=== PATIENT | female | born 1965 | race Caucasian/White ===

== ENCOUNTER 2017-06-20 06:11 | Day surgery (SDC) | payer BC, OTHER ==
[2017-06-19 15:00] VITALS: BMI 36.0
[2017-06-20] MEDS ORDERED: LIDOCAINE HCL 1%, 10 MG/ML (20ML VIAL) ONE (07:22)
[2017-06-20] MEDS ORDERED: BUPIVACAINE HCL/PF 0.5% (5MG/ML) 10 ML VIAL ONE (07:22)
--- NOTE | 2017-06-20 08:08 | HP ---
Satellite [facility] - Chief Complaint Chief Complaint: RIGHT WRIST PAIN - Past Medical History Allergies/Adverse Reactions: Allergies Allergy/AdvReac Type Severity Reaction Status Date / Time Latex, Natural Rubber Allergy Mild Verified 06/20/17 06:43 ...LMP Comment: POSTMENOPAUSAL =SINCE 2001 - Current Medications Current Medications: Home Medications Medication Instructions Recorded Amlodipine Bes/Olmesartan Med 0.5 tab PO DAILY 06/19/17 [Gregorio 10-40 mg Tablet] Cholecalciferol (Vitamin D3) 1 tab PO DAILY 06/19/17 [Vitamin D3 -] Fluticasone/Salmeterol [Advair 1 inh IH DAILY 06/19/17 250-50 Diskus] Pregabalin [Lyrica -] 150 ng PO BID 06/19/17 Sertraline HCl [Zoloft] 100 mg PO DAILY 06/19/17 Vitamin B Complex 1 cap PO HS 06/19/17 Omeprazole 40 mg PO DAILY 06/20/17 Satellite Physical Exam - Physical Examination Vital Signs: Vital Signs Period Temp Pulse Resp BP Sys/Wagner Pulse Ox Last 24 Hr 97.7 F-97.7 F 81-81 20-20 128-128/66-66 95 Extremities: Other (+ PHALENS) Satellite Impression/Plan - Impression/Plan Impression: R CTS Operative Procedure: R CTR Date to be Performed: 06/20/17
[2017-06-20] MEDS ORDERED: MIDAZOLAM HCL 2 MG/2 ML SINGLE DOSE VIAL ONE ×2 (08:17)
[2017-06-20] MEDS ORDERED: LIDOCAINE HCL/PF 2% SDV 5ML VIAL ONE (08:24)
[2017-06-20] MEDS ORDERED: SUCCINYLCHOLINE CHLORIDE 200 MG/10 ML VIAL ONE (08:24)
[2017-06-20] MEDS ORDERED: ceFAZolin SODIUM 1 GM VIAL ONE (08:25)
[2017-06-20] MEDS ORDERED: ceFAZolin SODIUM 1 GM VIAL IVPB ONE (08:28)
[2017-06-20] MEDS ORDERED: LIDOCAINE HCL 1%, 10 MG/ML (20ML VIAL) INF ONE (08:30)
[2017-06-20] MEDS ORDERED: BUPIVACAINE HCL/PF 0.5% (5MG/ML) 10 ML VIAL IJ ONE (08:30)
--- NOTE | 2017-06-20 08:59 | OP ---
Operative Note - Note: Operative Date: 06/20/17 Pre-Operative Diagnosis: right CTS Operation: right CTR, tenosynovectomy Post-Operative Diagnosis: Same as Pre-op Surgeon: Clarence Carlin Electron Beam Welder Setter: Ricky Vasquez Anesthesiologist/INSTRUMENT ADJUSTER: Allison Robles MD Anesthesia: Local, MAC Specimens Removed: tenosynovium Estimated Blood Loss (mls): 0 Drains, Volume Out (mls): 0 Blood Volume Replaced (mls): 0 Fluid Volume Replaced (mls): 500 Operative Report Dictated: Yes
[2017-06-20] MEDS ORDERED: ONDANSETRON 4 MG/2 ML VIAL IVPUSH PRN (09:03)
[2017-06-20] MEDS ORDERED: PROMETHAZINE HCL 25 MG/1 ML VIAL IVPUSH PRN (09:03)
[2017-06-20] MEDS ORDERED: oxyCODONE HCL 5 MG TABLET PO PRN (09:03)
[2017-06-20] MEDS ORDERED: LACTATED RINGERS SOLUTION 1,000 ML IV SCH (09:15)
[2017-06-20 09:17] VITALS: TEMP 97.9
[2017-06-20 12:18] VITALS: BP 115/57; PULSE 79
--- NOTE | 2017-06-21 10:24 | SPEC ---
DATE OF OPERATION: 06/20/2017 PREOPERATIVE DIAGNOSIS: Right carpal tunnel syndrome. POSTOPERATIVE DIAGNOSIS: Right carpal tunnel syndrome. PROCEDURE: Right carpal tunnel release and tenosynovectomy. SURGEON: Len Carlin MD WRAPPER OFF: Ricky Vasquez MD ANESTHESIOLOGIST: Allison Robles MD ANESTHESIA: MAC, local injection of 10 mL 0.50% Marcaine and 1% lidocaine mix. DRAINS: None. COMPLICATIONS: None. BLOOD LOSS: None. BLOOD GIVEN: None. FLUID REPLACEMENT: 500 mL INDICATION FOR PROCEDURE: This patient is a 52-year-old female with a preoperative diagnosis of a recurrent right carpal tunnel syndrome. After understanding the potential risks, complications, alternatives, and benefits of surgery versus nonsurgical treatment, the patient elected to undergo this procedure. DESCRIPTION OF PROCEDURE: The patient was brought to the operating room, peripheral IV placed and intravenous sedation was given. One gram of intravenous Ancef was given. MAC anesthesia was induced. A tourniquet was applied to the right upper arm and the right upper extremity was prepped and draped in sterile fashion. The entire case was done under 3.8 loupe magnification. A marking pen was utilized to arron out a longitudinal incision in an already existing skin crease. Twenty mL of 0.5% Marcaine mixed with 1% Lidocaine was injected in and around the surgical incision. The right upper extremity was elevated, exsanguinated with an Esmarch bandage and the tourniquet inflated to 250 mmHg. A No. 15 scalpel blade was utilized to cut down through the skin. Subcutaneous hemostasis was achieved with the bipolar cautery. Dissection was done through the superficial palmar fascia. Self-retaining retractors were placed into the wound. Under direct visualization, the transverse carpal ligament was transected with a No. 15 scalpel blade, exposing the median nerve and the contents of the carpal tunnel. The distal and proximal extents of the release were completed with a Littler scissor and checked with irrigation and my small finger. They were seen to be complete. Limited dissection was done on the radial side of the median nerve and more extensive dissection was done on the ulnar side of the median nerve. The patients nerve was seen to be quite compressed by epineurium and therefore a limited epineurotomy was performed. A Ragnell retractor was used to gently retract the median nerve in a radial direction. The patient had a lot of tenosynovitis and therefore a tenosynovectomy was performed off all 9 flexor tendons. This was passed off the field as tenosynovium right wrist. The floor of the carpal tunnel was checked. There were no abnormal masses or ganglion cysts. The area was copiously irrigated and washed out and closure begun. Undyed 4-0 Vicryl was used to close the deep dermal layer. Final skin reapproximation was done with horizontal mattress 4-0 nylon sutures. The area was then washed and dried, covered with Xeroform, 4x4s, fluffs between the fingers, Webril and a 4-inch plaster roll was utilized to make a volar splint, which was then wrapped with Krystle and Coban. The tourniquet was taken down after a total tourniquet time of 19 minutes. There were no complications during the case. The patient tolerated the procedure well and was brought to the ambulatory recovery room in stable condition. Ricky Vasquez MD dictating for MD LEN Mclaughlin M.D. [id number]
--- NOTE | 2017-06-21 16:54 | PATH ---
Surgical Pathology Report Patient Name: OZZY MARQUEZ [facility]. Rec. #: [id number] /Age/Gender: 1965 (Age: 52) / F Account: [id number] Location: [facility] SURGICAL Taken: 06/20/2017 Received: 06/20/2017 Reported: 06/21/2017 Physicians: Ricky Vasquez M.D. Specimen(s) Received RIGHT WRIST TENOSYNOVIUM Clinical History Carpal tunnel Final Diagnosis WRIST, TENOSYNOVIUM, RIGHT, EXCISION: BENIGN FIBROCONNECTIVE TISSUE AND SCANT ADIPOSE TISSUE. Electronically Signed Lakesha Soria M.D. Gross Description Received in formalin labeled "right wrist tenosynovium," is a 1.4 x 0.9 x 0.3 cm aggregate of multiple dewey-yellow, irregular portions of soft tissue, consistent with tenosynovium. The specimen is submitted in toto in one cassette. 06/20/201706/20/2017
== END 2017-06-20 12:18 | disposition home or self-care (01) ==
LOC: JASU-SURG 06:11
PROVIDERS: ATTEND Orthopaedic Surgery
PROC: 0LB50ZZ Excision of Right Lower Arm and Wrist Tendon, Open Approach (ICD-10-PCS; 2017-06-20)
PROC: 01N50ZZ Release Median Nerve, Open Approach (ICD-10-PCS; principal; 2017-06-20 08:00)
DX: G56.01 Carpal tunnel syndrome, right upper limb (principal); M65.831 Other synovitis and tenosynovitis, right forearm
CPT/HCPCS: 88304-TC; 94760

== ENCOUNTER 2017-08-15 08:50 | Day surgery (SDC) | payer BC, OTHER ==
[2017-08-14 12:06] VITALS: BMI 36.0
--- NOTE | 2017-08-15 08:10 | HP ---
Satellite H - Chief Complaint Chief Complaint: left hand pain, numbness, weakness History of Present Illness: left CTS History Source: Patient Limitations to Obtaining History: No Limitations - Past Medical History Allergies/Adverse Reactions: Allergies Allergy/AdvReac Type Severity Reaction Status Date / Time Latex, Natural Rubber Allergy Mild Verified 06/20/17 06:43 ...LMP Comment: MENOPAUSE - Current Medications Current Medications: Home Medications Medication Instructions Recorded Amlodipine Bes/Olmesartan Med 0.5 tab PO DAILY 06/19/17 [Gregorio 10-40 mg Tablet] Cholecalciferol (Vitamin D3) 1 tab PO DAILY 06/19/17 [Vitamin D3 -] Fluticasone/Salmeterol [Advair 1 inh IH DAILY 06/19/17 250-50 Diskus] Pregabalin [Lyrica -] 150 ng PO BID 06/19/17 Sertraline HCl [Zoloft] 100 mg PO DAILY 06/19/17 Vitamin B Complex 1 cap PO HS 06/19/17 Omeprazole 40 mg PO DAILY 06/20/17 Cetirizine HCl [Zyrtec -] 10 mg PO DAILY 08/14/17 Diphenhydramine [Benadryl -] 50 mg PO HS 08/14/17 Satellite Physical Exam - Physical Examination General Appearance: Well Nourished ENT: Clear Lung: Clear to auscultation Heart: Regular rate & rhythm Breasts: Soft Abdomen: Soft Extremities: No edema Satellite Impression/Plan - Impression/Plan Impression: left CTS Operative Procedure: left CTR Date to be Performed: 08/15/17
[2017-08-15 09:27] LABS: HCG,QUALITATIVE URINE NEGATIVE
[2017-08-15 09:32] LABS: URINE APPEARANCE CLEAR; URINE BILIRUBIN NEGATIVE (NEGATIVE); URINE BLOOD NEGATIVE (NEGATIVE); URINE COLOR YELLOW; URINE GLUCOSE (UA) NEGATIVE (NEGATIVE); URINE KETONE NEGATIVE (NEGATIVE); URINE NITRITE NEGATIVE (NEGATIVE); URINE PROTEIN NEGATIVE (NEGATIVE); URINE UROBILINOGEN NEGATIVE mg/dL (0.2-1.0)
[2017-08-15 09:38] LABS: URINE LEUK ESTERASE 1+ (NEGATIVE)
[2017-08-15 09:39] LABS: EPI CELLS RARE /HPF (FEW); URINE BACTERIA RARE /hpf (NONE SEEN); URINE MUCUS RARE
[2017-08-15] MEDS ORDERED: LIDOCAINE HCL 1%, 10 MG/ML (20ML VIAL) ONE (11:39)
[2017-08-15] MEDS ORDERED: BUPIVACAINE HCL/PF 0.5% (5MG/ML) 10 ML VIAL ONE (11:39)
[2017-08-15] MEDS ORDERED: PROPOFOL 20 ML ONE (11:42)
[2017-08-15] MEDS ORDERED: MIDAZOLAM HCL 2 MG/2 ML SINGLE DOSE VIAL ONE (11:43)
[2017-08-15] MEDS ORDERED: SUCCINYLCHOLINE CHLORIDE 200 MG/10 ML VIAL ONE (11:43)
[2017-08-15] MEDS ORDERED: ceFAZolin SODIUM 1 GM VIAL IVPB ONE (11:55)
--- NOTE | 2017-08-15 12:28 | OP ---
Operative Note - Note: Operative Date: 08/15/17 ([facility]) Pre-Operative Diagnosis: left cts Operation: left ctr Post-Operative Diagnosis: Same as Pre-op Surgeon: Clarence Carlin Application Security Architect: Ricky Vasquez Anesthesia: Local, MAC Specimens Removed: tenosynovium Estimated Blood Loss (mls): 0 (tourniquet) Operative Report Dictated: Yes
[2017-08-15 13:06] VITALS: TEMP 98
[2017-08-15 15:32] VITALS: BP 120/68; PULSE 76
--- NOTE | 2017-08-16 07:32 | SPEC ---
DATE OF OPERATION: 08/15/2017 PREOPERATIVE DIAGNOSIS: Left carpal tunnel syndrome. POSTOPERATIVE DIAGNOSIS: Left carpal tunnel syndrome. PROCEDURE: Left carpal tunnel release, tenosynovectomy. SURGEON: Clarence Carlin MD REGULATORY ASSISTANT: Ricky Vasquez MD MICROBIOLOGICAL LABORATORY TECHNICIAN: ANESTHESIA: MAC anesthesia with 12 mL local injection of 0.5% Marcaine, 1% lidocaine. DRAINS: None. COMPLICATIONS: None. BLOOD LOSS: None. BLOOD GIVEN: None. SPECIMENS: Tenosynovium, left wrist. FLUID REPLACEMENT: 500 mL. This patient is a 52-year-old female with a preoperative diagnosis of severe left carpal tunnel syndrome. After understanding the potential risks, complications, alternatives, and benefits of surgery versus nonsurgical treatment, the patient elected to undergo this procedure. DESCRIPTION OF PROCEDURE: The patient was brought to the operating room, peripheral IV placed and intravenous sedation was given. One gram of intravenous Ancef was given. MAC anesthesia was induced. A tourniquet was applied to the left upper arm and the left upper extremity was prepped and draped in sterile fashion. The entire case was done under 3.8 loupe magnification. A marking pen was utilized to arron out a longitudinal incision in an already existing skin crease. Twenty mL of 0.5% Marcaine mixed with 1% Lidocaine was injected in and around the surgical incision. The left upper extremity was elevated, exsanguinated with an Esmarch bandage and the tourniquet inflated to 250 mmHg. A No. 15 scalpel blade was utilized to cut down through the skin. Subcutaneous hemostasis was achieved with the bipolar cautery. Dissection was done through the superficial palmar fascia. Self-retaining retractors were placed into the wound. Under direct visualization, the transverse carpal ligament was transected with a No. 15 scalpel blade, exposing the median nerve and the contents of the carpal tunnel. The distal and proximal extents of the release were completed with a Littler scissor and checked with irrigation and my small finger. They were seen to be complete. Limited dissection was done on the radial side of the median nerve and more extensive dissection was done on the ulnar side of the median nerve. The patients nerve was seen to be quite compressed by epineurium and therefore a limited epineurotomy was performed. A Ragnell retractor was used to gently retract the median nerve in a radial direction. The patient had a lot of tenosynovitis and therefore a tenosynovectomy was performed off all 9 flexor tendons. This was passed off the field as tenosynovium left wrist. The floor of the carpal tunnel was checked. There were no abnormal masses or ganglion cysts. The area was copiously irrigated and washed out and closure begun. Undyed 4-0 Vicryl was used to close the deep dermal layer. Final skin reapproximation was done with horizontal mattress 4-0 nylon sutures. The area was then washed and dried, covered with Xeroform, 4x4s, fluffs between the fingers, Webril and a 4-inch plaster roll was utilized to make a volar splint, which was then wrapped with Krystle and Coban. The tourniquet was taken down after a total tourniquet time of 18 minutes. There were no complications during the case. The patient tolerated the procedure well and was brought to the ambulatory recovery room in stable condition. Yogi [id number]
--- NOTE | 2017-08-16 13:57 | PATH ---
Surgical Pathology Report Patient Name: OZZY MARQUEZ [facility]. Rec. #: [id number] /Age/Gender: 1965 (Age: 52) / F Account: [id number] Location: [facility] SURGICAL Taken: 08/15/2017 Received: 08/15/2017 Reported: 08/16/2017 Physicians: Yogi Connelly M.D. Specimen(s) Received TENOSYNOVIUM LEFT HAND Clinical History Left carpal tunnel Final Diagnosis TENOSYNOVIUM, HAND, LEFT, EXCISION: BENIGN DENSE FIBROCONNECTIVE TISSUE. Electronically Signed Lakesha Soria M.D. Gross Description Received in formalin labeled "tenosynovium left hand," is a 1.1 cm greatest dimension dewey-yellow soft tissue fragment, consistent with tenosynovium. The specimen is submitted in toto in one cassette. /08/15/201708/15/2017
== END 2017-08-15 15:37 | disposition home or self-care (01) ==
LOC: JASU-SURG 08:50
PROVIDERS: ATTEND Orthopaedic Surgery
PROC: 01N50ZZ Release Median Nerve, Open Approach (ICD-10-PCS; principal; 2017-08-15 10:30)
DX: G56.02 Carpal tunnel syndrome, left upper limb (principal); M65.832 Other synovitis and tenosynovitis, left forearm
CPT/HCPCS: 81003; 81015; 84703; 88304-TC

== ENCOUNTER 2021-04-20 04:24 | Day surgery (SDC) | payer BC, OTHER ==
[2021-04-19 11:37] VITALS: BMI 38.7
[~2021-04-20 04:24] MED LIST: BUPIVACAINE HCL/PF 0.5% (5MG/ML) 10 ML VIAL IJ ONE; LIDOCAINE HCL 1%, 10 MG/ML (20ML VIAL) INF ONE
[2021-04-20] MEDS ORDERED: BUPIVACAINE HCL/PF 0.5% (5MG/ML) 10 ML VIAL ONE (07:21)
[2021-04-20] MEDS ORDERED: LIDOCAINE HCL 1%, 10 MG/ML (20ML VIAL) ONE (07:21)
[2021-04-20] MEDS ORDERED: SEVOFLURANE 250 ML BTL ONE (07:37)
[2021-04-20] MEDS ORDERED: MIDAZOLAM HCL 2 MG/2 ML SINGLE DOSE VIAL ONE ×2 (07:39)
[2021-04-20] MEDS ORDERED: PROPOFOL 20 ML ONE (07:39)
[2021-04-20] MEDS ORDERED: ceFAZolin 2 GRAM PREMIX BAG IVPB ONE (08:20)
[2021-04-20] MEDS ORDERED: KETOROLAC TROMETHAMINE 30 MG/1 ML VIAL ONE (08:20)
[2021-04-20] MEDS ORDERED: DEXAMETHASONE SOD PHOSPHATE 4 MG/1 ML VIAL ONE (08:20)
[2021-04-20] MEDS ORDERED: ceFAZolin SODIUM 1 GM VIAL ONE (08:20)
[2021-04-20] MEDS ORDERED: ONDANSETRON 4 MG/2 ML VIAL ONE (08:20)
[2021-04-20] MEDS ORDERED: ONDANSETRON 4 MG/2 ML VIAL IVPUSH PRN (08:46)
[2021-04-20] MEDS ORDERED: oxyCODONE HCL 5 MG TABLET PO ONE (08:47)
[2021-04-20] MEDS ORDERED: LACTATED RINGERS SOLUTION 1,000 ML IV SCH (09:00)
[2021-04-20 09:44] VITALS: TEMP 97.1
[2021-04-20 11:58] VITALS: BP 110/59; PULSE 82
== END 2021-04-20 11:55 | disposition home or self-care (01) ==
LOC: JASU-SURG 04:24
PROVIDERS: ATTEND Orthopaedic Surgery
PROC: 0LN70ZZ Release Right Hand Tendon, Open Approach (ICD-10-PCS; principal; 2021-04-20 08:00)
DX: M65.331 Trigger finger, right middle finger (principal)

== ENCOUNTER 2021-07-25 04:31 | Day surgery (SDC) | payer BC, OTHER ==
[2021-07-21 12:30] VITALS: BMI 38.7
[2021-07-25] MEDS ORDERED: PROPOFOL 20 ML ONE (07:22)
[2021-07-25] MEDS ORDERED: ONDANSETRON 4 MG/2 ML VIAL ONE (07:22)
[2021-07-25] MEDS ORDERED: DEXAMETHASONE SOD PHOSPHATE 4 MG/1 ML VIAL ONE (07:22)
[2021-07-25] MEDS ORDERED: LIDOCAINE 1%/EPI 1:100000 (20 ML MULTI DOSE VIAL) ONE (07:22)
[2021-07-25] MEDS ORDERED: LIDOCAINE HCL/PF 2% SDV 5ML VIAL ONE (07:22)
[2021-07-25] MEDS ORDERED: BUPIVACAINE HCL/PF 0.5% (5MG/ML) 10 ML VIAL ONE (07:23)
[2021-07-25] MEDS ORDERED: MIDAZOLAM HCL 2 MG/2 ML SINGLE DOSE VIAL ONE (07:23)
[2021-07-25] MEDS ORDERED: LIDOCAINE 1%/EPI 1:100000 (20 ML MULTI DOSE VIAL) IJ ONE (07:33)
[2021-07-25] MEDS ORDERED: BUPIVACAINE HCL/PF 0.5% (5MG/ML) 10 ML VIAL IJ ONE ×2 (07:35→08:52)
[2021-07-25] MEDS ORDERED: ceFAZolin SODIUM 1 GM VIAL IVPB ONE (08:17)
[2021-07-25] MEDS ORDERED: ceFAZolin SODIUM 1 GM VIAL ONE (08:17)
[2021-07-25] MEDS ORDERED: ONDANSETRON 4 MG/2 ML VIAL IVPUSH PRN (08:33)
[2021-07-25] MEDS ORDERED: oxyCODONE HCL 5 MG TABLET PO PRN ×2 (08:33)
[2021-07-25] MEDS ORDERED: LACTATED RINGERS SOLUTION 1,000 ML IV SCH (08:45)
[2021-07-25 12:34] VITALS: BP 125/62; PULSE 89; TEMP 98.8
== END 2021-07-25 12:10 | disposition home or self-care (01) ==
LOC: JASU-SURG 04:31
PROVIDERS: ATTEND Orthopaedic Surgery
PROC: 0SBC4ZZ Excision of Right Knee Joint, Percutaneous Endoscopic Approach (ICD-10-PCS; 2021-07-25)
PROC: 0SBC4ZZ Excision of Right Knee Joint, Percutaneous Endoscopic Approach (ICD-10-PCS; principal; 2021-07-25 08:00)
DX: S83.271A Complex tear of lateral meniscus, current injury, right knee, initial encounter (principal); X58.XXXA Exposure to other specified factors, initial encounter; Y93.9 Activity, unspecified; Y92.9 Unspecified place or not applicable; Y99.9 Unspecified external cause status; M65.861 Other synovitis and tenosynovitis, right lower leg
CPT/HCPCS: 94760; 97116-GP

== ENCOUNTER 2021-12-14 04:13 | Day surgery (SDC) | payer BC, OTHER ==
[2021-12-13 14:45] VITALS: BMI 40.3
[2021-12-14] MEDS ORDERED: PROPOFOL 20 ML ONE ×4 (07:23→09:59)
[2021-12-14] MEDS ORDERED: MIDAZOLAM HCL 2 MG/2 ML SINGLE DOSE VIAL ONE ×2 (07:23)
[2021-12-14] MEDS ORDERED: BUPIVACAINE HCL/PF 0.5% (5MG/ML) 10 ML VIAL ONE (07:27)
[2021-12-14] MEDS ORDERED: ceFAZolin SODIUM 1 GM VIAL IVPB ONE (08:30)
[2021-12-14] MEDS ORDERED: LACTATED RINGERS SOLUTION 1,000 ML IV SCH (10:30)
[2021-12-14 12:16] VITALS: TEMP 97.7
[2021-12-14 15:15] VITALS: BP 111/63; PULSE 81
== END 2021-12-14 14:15 | disposition home or self-care (01) ==
LOC: JASU-SURG 04:13
PROVIDERS: ATTEND Orthopaedic Surgery
PROC: 0PBB4ZZ Excision of Left Clavicle, Percutaneous Endoscopic Approach (ICD-10-PCS; 2021-12-14)
PROC: 0RBK4ZZ Excision of Left Shoulder Joint, Percutaneous Endoscopic Approach (ICD-10-PCS; 2021-12-14)
PROC: 0RNK4ZZ Release Left Shoulder Joint, Percutaneous Endoscopic Approach (ICD-10-PCS; principal; 2021-12-14 08:00)
PROC: 0LM24ZZ Reattachment of Left Shoulder Tendon, Percutaneous Endoscopic Approach (ICD-10-PCS; 2021-12-14 08:00)
DX: M75.102 Unspecified rotator cuff tear or rupture of left shoulder, not specified as traumatic (principal); M75.42 Impingement syndrome of left shoulder
CPT/HCPCS: 94760

== ENCOUNTER 2022-01-30 04:27 | Day surgery (SDC) | payer BC, OTHER ==
[2022-01-25 14:49] VITALS: BMI 39.1
[2022-01-30] MEDS ORDERED: ROCURONIUM BROMIDE 50 MG/5 ML SYRINGE ONE (07:31)
[2022-01-30] MEDS ORDERED: DEXAMETHASONE SOD PHOSPHATE 4 MG/1 ML VIAL ONE (07:31)
[2022-01-30] MEDS ORDERED: MIDAZOLAM HCL 2 MG/2 ML SINGLE DOSE VIAL ONE ×2 (07:31→07:36)
[2022-01-30] MEDS ORDERED: PROPOFOL 20 ML ONE ×5 (07:31→08:11)
[2022-01-30] MEDS ORDERED: LIDOCAINE HCL/PF 2% SDV 5ML VIAL ONE (07:31)
[2022-01-30] MEDS ORDERED: BUPIVACAINE HCL/PF 0.5% (5MG/ML) 10 ML VIAL ONE (07:33)
[2022-01-30] MEDS ORDERED: LIDOCAINE 1%/EPI 1:100000 (20 ML MULTI DOSE VIAL) ONE (07:34)
[2022-01-30] MEDS ORDERED: ceFAZolin SODIUM 1 GM VIAL IVPB ONE (08:06)
[2022-01-30] MEDS ORDERED: BUPIVACAINE HCL/PF 0.5% (5MG/ML) 10 ML VIAL IJ ONE (08:32)
[2022-01-30] MEDS ORDERED: PROMETHAZINE HCL 25 MG/1 ML VIAL IVPUSH PRN (09:11)
[2022-01-30] MEDS ORDERED: LACTATED RINGERS SOLUTION 1,000 ML IV SCH (09:15)
[2022-01-30] MEDS: MEPERIDINE HCL 25 MG/ML VIAL ONE ×2 (09:30→10:05)
[2022-01-30 11:15] VITALS: RESP 18
[2022-01-30 13:15] VITALS: BP 125/71; PULSE 79; TEMP 98
== END 2022-01-30 12:35 | disposition home or self-care (01) ==
LOC: JASU-SURG 04:27
PROVIDERS: ATTEND Orthopaedic Surgery
PROC: 0SBD4ZZ Excision of Left Knee Joint, Percutaneous Endoscopic Approach (ICD-10-PCS; principal; 2022-01-30 08:00)
DX: S83.282A Other tear of lateral meniscus, current injury, left knee, initial encounter (principal); X58.XXXA Exposure to other specified factors, initial encounter; Y93.9 Activity, unspecified; Y92.9 Unspecified place or not applicable; Y99.9 Unspecified external cause status; M17.12 Unilateral primary osteoarthritis, left knee
CPT/HCPCS: 94760